=== PATIENT | female | born 2000 | race Caucasian/White ===

== ENCOUNTER 2020-06-15 22:36 | Emergency (ER) | payer OTHER ==
[~2020-06-15] VITALS: Ht 167.6 cm; Wt 102.8 kg
[2020-06-15] MEDS ORDERED: DIPHENHYDRAMINE 50 MG/ML, 1ML IVPush ONE (23:00)
[2020-06-15] MEDS ORDERED: SODIUM CHLORIDE 0.9% 1,000ML IVBOLUS ONE (23:00)
[2020-06-15] MEDS ORDERED: FAMOTIDINE 20 MG/2 ML IVPush ONE (23:00)
[2020-06-15] MEDS ORDERED: DIPHENHYDRAMINE 50 MG/ML, 1ML ONE (23:10)
[2020-06-15] MEDS ORDERED: FAMOTIDINE 20 MG/2 ML ONE (23:10)
[2020-06-15 23:19] LABS: MEAN CORPUSCULAR HEMOGLOBIN 28.4 pg (27.0-34.8); MEAN CORPUSCULAR HGB CONC 33.9 g/dL (32.4-35.8); MEAN PLATELET VOLUME 7.8 fL (7.4-10.4); PLATELET COUNT 222 x10^3/uL (130-400); RED BLOOD COUNT 4.31 x10^6/uL (3.82-5.3); RED CELL DISTRIBUTION WIDTH 13.8 % (9.6-15.2)
[2020-06-15 23:27] LABS: ALBUMIN 3.2 g/dL (3.4-5.0); ANION GAP 6 mmol/L (5-15); CHLORIDE 102 mmol/L (98-107)
[2020-06-15 23:59] LABS: MD YES
[2020-06-16 00:01] LABS: ANISOCYTOSIS 1+; BAND#(MANUAL) 0.16 x10^3/uL; BANDS%(MANUAL) 2 % (0-7); EOS#(MANUAL) 0.08 x10^3/uL (0.0-0.8); EOS% (MANUAL) 1 % (1-7); LYMPH#(MANUAL) 2.79 x10^3/uL (1-6.1); LYMPHS% (MANUAL) 34 % (22-44); MONOS#(MANUAL) 1.64 x10^3/uL (0.3-2.7); MONOS% (MANUAL) 20 % (2-9); OVALOCYTES 1+; REACTIVE LYMPHS # (MANUAL) 0.16 x10^3/uL (0-0); REACTIVE LYMPHS % (MANUAL) 2 % (0-0); SEG#(MANUAL) 3.36 x10^3/uL (1.8-8); SEGS% (MANUAL) 41 % (42-75)
[2020-06-16 00:02] LABS: <PLATELET ESTIMATE> ADEQUATE; <PLT MORPHOLOGY> NORMAL PLT MORPH; ECHINOCYTES 1+; MICROCYTOSIS 1+
[2020-06-16 00:49] VITALS: BP 141/78
== END 2020-06-16 00:51 | disposition home or self-care (01) ==
LOC: ED 23:12
DX: T78.49XA Other allergy, initial encounter (principal); X58.XXXA Exposure to other specified factors, initial encounter
CPT/HCPCS: 36415; 80048; 82040; 84703; 85025; 96361; 96374; 96375; 99284; J1200; J7030

== ENCOUNTER 2020-06-16 21:55 | Emergency (ER) | payer OTHER ==
[~2020-06-16] VITALS: Ht 167.6 cm; Wt 102.5 kg
[2020-06-16] MEDS ORDERED: SODIUM CHLORIDE FLUSH 10ML SYR IVF ONE (22:30)
[2020-06-16] MEDS ORDERED: FAMOTIDINE 20 MG/2 ML IVPush ONE (22:30)
[2020-06-16] MEDS ORDERED: SODIUM CHLORIDE 0.9% 1,000ML IVBOLUS ONE (22:30)
[2020-06-16] MEDS ORDERED: EPINEPHRINE 1 MG/ML, 1ML SQ ONE (22:30)
[2020-06-16] MEDS ORDERED: methylPREDNISolone SOD SUCC 125 MG/2 ML IVPush ONE (22:30)
[2020-06-16] MEDS ORDERED: FAMOTIDINE 20 MG/2 ML ONE (22:36)
[2020-06-16] MEDS ORDERED: EPINEPHRINE 1 MG/ML, 1ML ONE (22:36)
[2020-06-16] MEDS ORDERED: methylPREDNISolone SOD SUCC 125 MG/2 ML ONE (22:36)
[2020-06-16 23:53] VITALS: BP 123/78
== END 2020-06-17 00:44 | disposition home or self-care (01) ==
LOC: ED 22:17
DX: J98.01 Acute bronchospasm (principal); T50.B95A Adverse effect of other viral vaccines, initial encounter; R07.89 Other chest pain; R06.02 Shortness of breath; R50.9 Fever, unspecified; R00.0 Tachycardia, unspecified; Y92.89 Other specified places as the place of occurrence of the external cause
CPT/HCPCS: 93005; 96372; 96374; 96375; 99284; J0171; J2930; J7030; Q0177

== ENCOUNTER 2020-06-18 17:21 | Emergency (ER) | payer OTHER ==
[~2020-06-18] VITALS: Ht 167.6 cm; Wt 101.7 kg
--- NOTE | 2020-06-18 17:42 | NUR ---
first contact with pt. pt c/o allergic reaction by covid vaccine. 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 pt's aox4. resps even and unlabored. pt stated"all symptoms gone now" bp/spo2 monitors in place. call light within reach. edmd at bedside for assessment at this time.
--- NOTE | 2020-06-18 18:08 | NUR ---
pt resting in [facility]. pt's aox4. resps even and unlabored. pt denies any needs or concerns at this time.
--- NOTE | 2020-06-18 18:46 | NUR ---
report received from birdie rn, pt resting on [facility]. bed in lowest, rails engaged, call light on lap, tm. chart up for recheck.
--- NOTE | 2020-06-18 18:50 | NUR ---
report given to joyce singer.
[2020-06-18 19:10] VITALS: BP 116/71
--- NOTE | 2020-06-18 19:10 | NUR ---
Patient given discharge instructions and they have confirmed that they understand the instructions. Patient ambulatory with steady gait. NAD, ALL QUESTIONS ANSWERED APPROPRIATELY. DENIES ADDITIONAL NEEDS, NO PERSONAL BELONGINGS LEFT IN ROOM AFTER DC.
== END 2020-06-18 19:18 | disposition home or self-care (01) ==
LOC: ED 17:51
DX: T78.40XA Allergy, unspecified, initial encounter (principal); R07.89 Other chest pain; R06.02 Shortness of breath; X58.XXXA Exposure to other specified factors, initial encounter
CPT/HCPCS: 99285